=== PATIENT | female | born 1960 | race Caucasian/White ===

== ENCOUNTER 2024-09-19 08:52 | Outpatient (CLI) | payer MEDICARE, MEDICAID, SELFPAY ==
[2024-09-19 10:43] LABS: Basophils Percent Auto 0.6 % (0.2-1.2); Eosinophils Absolute Auto 0.3 K/mm3 (0-0.3); Eosinophils Percent Auto 6.9 % (0-4.4); Hematocrit 39.6 % (37.0-47.0); Hemoglobin 12.8 g/dL (12.0-15.0); Immature Granulocyte Absolute 0.01 K/mm3 (0.00-0.031); Immature Granulocyte Percent A 0.2 % (0-0.5); Lymphocytes Absolute Auto 1.34 K/mm3 (0.9-3.2); Lymphocytes Percent Auto 28.1 % (18.3-44.2); Mean Corpuscular HGB Conc 32.3 g/dl (32-36); Mean Corpuscular Hemoglobin 32.4 pg (26-34); Mean Corpuscular Volume 100.3 fl (80-100); Monocytes Absolute Auto 0.5 K/mm3 (0.1-0.6); Monocytes Percent Auto 10.7 % (2.6-8.5); Neutrophils Absolute Auto 2.6 K/mm3 (1.3-6.7); Neutrophils Percent Auto 53.5 % (45.5-73.1); Platelet Count Result 215 k/mm3 (150-375); Red Blood Count 3.95 M/mm3 (4.2-5.4); Red Cell Distribution Width 13.4 % (11.5-14.5); White Blood Count 4.8 K/mm3 (4.5-10.0)
[2024-09-19 10:54] LABS: Add Urine Microscopic? YES; Appearance Urine Clear (Clear); Bacteria Urine None Seen /hpf; Bilirubin Urine Negative (Negative); Blood Urine Negative (Negative); Color Urine Yellow (Yellow); Glucose Urine UA Negative (Negative); Ketones Urine Negative (Negative); Leukocyte Esterase Ur 2+ LEU/UL (Negative); Nitrate Urine Negative (Negative); Non Pathogenic Casts 0-2; Protein Urine Negative (Negative); Prothrombin Time 13.5 Seconds (11.1-14.7); RBC Urine 0-2 /hpf (0-2); Specific Grav Ur 1.023 (1.001-1.035); Squamous Epithelial Cell Urine Few /hpf (Few); Urobilinogen Urine 0.2 mg/dL (<2.0); pH Urine 6.5 (5.0-9.0)
[2024-09-19 10:55] LABS: Albumin Level 4.5 g/dL (3.5-5.1); Anion Gap 8 mmol/L (4-12); Blood Urea Nitrogen 17 mg/dL (7-17); Calcium 9.2 mg/dL (8.4-10.2); Carbon Dioxide 29 mmol/L (22-30); Chloride 101 mmol/L (98-107); Estimated Glomerular Filt Rate > 60; Glucose 93 mg/dL (65-110); Partial Thromboplastin Time 24.1 Seconds (22.3-36.8); Potassium 4.9 mmol/L (3.4-5.0); Sodium 138 mmol/L (137-145)
[2024-09-19 11:06] LABS: Urine Cotinine NEGATIVE
[2024-09-19 11:20] LABS: Hemoglobin A1C 5.2 % (<5.7)
[2024-09-19 11:58] LABS: MRSA (PCR) NOT DETECTED (NOT DETECTE)
== END 2024-09-19 08:53 | disposition home or self-care (01) ==
PROVIDERS: PCP Internal Medicine Gastroenterology; Visit Provider Orthopaedic Surgery
DX: M17.12 Unilateral primary osteoarthritis, left knee (principal); Z01.812 Encounter for preprocedural laboratory examination
CPT/HCPCS: 80048; 80307; 81001; 82040; 83036; 85025; 85610; 85730; 86850; 86900; 86901; 87086; 87641

== ENCOUNTER 2024-11-11 00:47 | Day surgery (SDC) | payer MEDICARE, MEDICAID, SELFPAY ==
--- NOTE | 2024-09-14 13:17 | PC.NURSE ---
Patient says is unable to get here for interview as the transportation arrangements she made has fallen through. Discussed with patient need to make total joint class and transferred to scheduling to reschedule this appt.
--- NOTE | 2024-09-19 08:56 | PC.NURSE ---
Report to the Outpatient Waiting Room, entrance under the green pavilion located off [facility], at time __10 am on date _09/27/24 . Planned Procedure Time: 1200 noon .? Time changes happen often and if your time is changed the preop area will call you the afternoon before. - You and your visitor will be asked to self-screen and do not enter if you have any COVID symptoms. Please call surgeon if you need to reschedule. - A mask is optional within the hospital at this time. Patients may have clear liquids (water, carbonated beverages, clear teas, apple juice) until 3 hours prior to surgery( 9 am) with a maximum of 20 ounces. - No food from midnight until time of surgery and no smoking. This includes no chewing gum, candy or mints. Take only the following medications with a SIP of water on the morning of surgery: _LEVOTHYROXINE_,HYDROCODONE IF NEEDED FOR PAIN,VALACYCLOVIR DO NOT STOP ANY OF YOUR OTHER PRESCRIPTION MEDICATIONS PRIOR TO SURGERY EXCEPT THE FOLLOWING Medications to discontinue per physician ___CELECOXIB,IBUPROFEN, PER DR MCNEILL HOLD ALL VITAMNS AND SUPPLEMENTS 3 DAYS PRE OP .LAST DOSE09/23/24 TOTAL JOINT CLASS 09/21/24 AT 10 AM- PATIENT AWARE Please no make-up, nail moroccan, hairspray, perfume, deodorant, or body powder the day of surgery.? No jewelry (including any body piercings) or valuables the day of surgery, leave them at home.? Please take a shower or bath the night before, or the morning of, surgery with an antibacterial soap.? Wear comfortable, loose fitting clothing.? Children are encouraged to wear pajamas. - Jewelry must be removed prior to entering the operating room.? Rings and piercings that are not removed may be cut off. - The hospital will not accept responsibility for valuables.? - Please leave all valuables, including medications, at home the day of surgery. If you are going home after surgery, a licensed compressed air pile driver operator must drive you home.? - NO public transportation without another adult if you receive anesthesia. - We recommend that an adult stay with you for 24 hours following discharge. - We also recommend that you do not drive, make important decision, drink alcoholic beverages, or take any drugs that were not prescribed by your health care provider for at least 24 hours after your discharge time. Follow any additional instructions given to you from your surgeon. verbal and written instructions given to __PATIENT and asked if any additional questions and then verbalized understanding. Patient advised to call surgeon office or pre surgery nurse liaison [phone] if any additional questions.
[2024-09-19 09:05] VITALS: BMI 32.0
[2024-09-19 09:51] VITALS: BP 137/89; PULSE 83; RESP 18; TEMP 36.6; O2SAT 99
--- NOTE | 2024-10-24 14:14 | PC.NURSE ---
Report to the Outpatient Waiting Room, entrance under the green pavilion located off [facility], at time _6 AM on date _11/11/24 . Planned Procedure Time: _7:30 AM .? Time changes happen often and if your time is changed the preop area will call you the afternoon before. - You and your visitor will be asked to self-screen and do not enter if you have any COVID symptoms. Please call surgeon if you need to reschedule. - A mask is optional within the hospital at this time. Patients may have clear liquids (water, carbonated beverages, clear teas, apple juice) until 3 hours prior to surgery ( 4:30 AM) with a maximum of 20 ounces. - No food from midnight until time of surgery and no smoking, or chewing tobacco (or any form of nicotine). No chewing gum, candy or mints. -. Take only the following medications with a SIP of water on the morning of surgery: ___LEVOTHYROXINE,HYDROCODONE IF NEEDED FOR PAIN,VALACYCLOVIR DO NOT STOP ANY OF YOUR OTHER PRESCRIPTION MEDICATIONS PRIOR TO SURGERY EXCEPT THE FOLLOWING Hold all vitamins and supplements for 3 days per anesthesiologist.LAST DOSE 11/07/24 Medications to discontinue per physician __IBUPROFEN PER DR MCNEILL Please no make-up, nail vietnamese, hairspray, perfume, deodorant, or body powder the day of surgery.? No jewelry (including any body piercings) or valuables the day of surgery, leave them at home.? Please take a shower or bath the night before, or the morning of, surgery with an antibacterial soap.? Wear comfortable, loose fitting clothing.? Children are encouraged to wear pajamas. - Jewelry must be removed prior to entering the operating room.? Rings and piercings that are not removed may be cut off. - The hospital will not accept responsibility for valuables.? - Please leave all valuables, including medications, at home the day of surgery. If you are going home after surgery, a licensed motorcycle delivery driver must drive you home.? - NO public transportation without another adult if you receive anesthesia. - We recommend that an adult stay with you for 24 hours following discharge. - We also recommend that you do not drive, make important decision, drink alcoholic beverages, or take any drugs that were not prescribed by your health care provider for at least 24 hours after your discharge time. Follow any additional instructions given to you from your surgeon. Telephone instructions given to __PATIENT and asked if any additional questions and then verbalized understanding. Patient advised to call surgeon office or pre surgery nurse liaison [phone] if any additional questions.
[2024-11-11] VITALS (17 sets, daily range): BP systolic 112–172; BP diastolic 59–93; PULSE 63–90; RESP 12–19; TEMP 36.1–37.3; O2SAT 95–100; BMI 33.2
--- NOTE | ~2024-11-11 | XR_ITS ---
EXAMINATION: [id number] DATE: 11/11/2024 10:50 INDICATION: Left knee arthroplasty. Postop. TECHNIQUE: 2 views of the left knee were obtained. COMPARISON: Left knee radiographs 06/27/2024 FINDINGS: There is a total left knee arthroplasty without patellar resurfacing in near-anatomic align ment. No fracture. There is severe osteoarthritis of the patellofemoral compartment. There has been r esection of osteophytes of the patella. There is gas in the knee joint and soft tissues, consistent w ith recent surgery. Anterior skin margarita are noted. IMPRESSION: 1. Total left knee arthroplasty in near-anatomic alignment. Reviewed, dictated and finalized at location L.
--- OUTSIDE RECORDS SUMMARY | 2024-11-11 00:50 | XMS_ITS | Data Portability ---
Author Organization [place] [facility], Main Office Address [address] [place] [address] Care Team Providers Care Freelance Web Designer Name Role Phone DIANA GORDILLO Primary Care Provider DIANA GORDILLO Referring Provider Assessment Encounter Date Assessment Date Assessment LastModified by Organization Details LastModified Time 08/01/2024 08/01/2024 64-year-old female presents for evaluation of her left hand. She had injury about a week ago when she was catching a football, fell on the ground, and hit her left hand. She had pain and swelling over her pinky. She denies any previous injury. She is right-hand dominant. She is on disability for other medical issues. She currently rates her pain 6/10. She has been taking hydrocodone over this, and was placed in a splint, has not had any other treatments. Review of systems per patient questionnaire Physical exam: She has ecchymosis and swelling over the pinky and ulnar hand. She has tenderness over the proximal phalanx. She is able to straighten her fingers fully, has difficulty with making a full fist. Normal cascade alignment. Sensation intact to light touch, 2+ radial pulse. X-rays reviewed, demonstrating a minimally displaced fracture involving the proximal phalanx of the pinky, extra-articular at the base we will treat this fracture conservatively with veronica taping. We also discussed placing her in a splint but she wanted to proceed with veronica taping since she lives by herself and needs to be able to move her hand. We will see her back in 3 weeks with repeat x-rays. She is in agreement plan. She also smokes occasionally. We discussed nicotine cessation effects of nicotine on healing, 3 minutes were spent. Not available 08/01/2024 12:27:18 08/15/2024 08/15/2024 64-year-old female presents for re-evaluation of her left hand proximal phalanx pinky fracture. She states she has been veronica taping it, but a week or so ago she forgot to tape it and was making the bed and jammed the finger. It was very painful and has been painful since. She rates her pain 6/10. Physical exam: No ecchymosis. Trace edema around pinky. She has tenderness over the proximal phalanx. She is able to straighten her fingers fully, has difficulty with making a full fist. Normal cascade alignment. Sensation intact to light touch, 2+ radial pulse. X-rays reviewed, demonstrating a minimally displaced fracture involving the proximal phalanx of the pinky, extra-articular at the base It does not look like she displaced the finger, but it is possible she broke new bone formation. We will continue to treat this fracture conservatively with veronica taping. We discussed that bones typically take 4-6 weeks to heal and that time frame may start over after her new injury. We will see her back in 3 weeks with repeat x-rays. She is in agreement plan. [email or web address] Not available 08/15/2024 12:52:02 09/12/2024 09/12/2024 64-year-old female presents for follow-up of her left pinky. She had a 2nd proximal phalanx fracture right before we saw her in July. She has been veronica taping. She reports feeling better, having minimal pain rated as 2/10. She is able to move her fingers more. She has no tenderness around the finger. She is able to make a closed fist and straighten nearly all the way. She has sensation intact to light touch throughout. X-rays were reviewed, demonstrating a healing fracture with callus formation That this point, her finger is healing. She may progress with activities as tolerated. She wants to continue veronica taping as it is icy out and that is fine. Follow up as needed. Not available 09/12/2024 10:53:55 Plan of Treatment Reminders Order Date Submit Date Provider Last Modified By Organization Details Last Modified Time Details Appointments None record ed. Lab None record ed. Referral None record ed. Procedures None record ed. Surgeries None record ed. Imaging XR, hand, 3 or more view 025 09/12/19 25 [email or web address] [facility], [address] [facility], [place], [address], 5 12:29:59 XR, hand, 3 or more view 024 08/15/20 24 [email or web address] [facility] [place], [address] [facility], [place], [address], 4 12:47:54 Medication Orders None record ed. Patient TargetsNo targets recorded. Patient InstructionsNo instructions recorded. Reason for Referral None Reported. Results Created Date Observation Date Name Description Value Unit Range Abnormal Flag Note LastModifiedBy Organization Detail LastModifiedTime 04/18/2004/17/2022 MRI, lumba r spine , w/o contr ast [facility] [address] [place], [place] [id number] Patien t Name: GIANNI JESUS Access ion #: [id number] Sex: F : 1959 4 Locati on: RAD Attend ing Physic ortega: ANAND LUNA Orderi elizabeth Physic ortega: ANAND LUNA Exam Date: 022 12:51 PM Exam Name: MRI L SPINE WO Admitt ing Diagno sis(es ): RADIOL OGY REPORT - FINAL EXAM: MRI L SPINE WO HISTOR Y: spinal stenos is lumbar region /hx 2 previo us back surger ies 62-yea r-old female with severe back pain, histor y of spinal stenos is, lumbar spine surger ies in 2010 and 2012. COMPAR KEREN: MRI of the lumbar spine dated 2020. TECHNI QUE: Multip lanar multis equenc e noncon trast MR images of the lumbar spine were perfor med. FINDIN GS: There is a stable superi or endpla te burst fractu re of L1, simila r to that seen on the MRI dated 2020. No new fractu res are identi fied in the lumbar spine. The conus termin ates at L1. There is lumbar levosc oliosi s. Page 1 of 4 [facility] Pati t Name: GIANNI JESUS Access ion #: [id number] Sex: F : 1959 4 Exam Date: 022 12:51 PM Exam Name: MRI L SPINE WO Admitt ing Diagno sis(es ): There are postop erativ e change s extension course counselor ior spinal fusion L4-L5 with pedicl e screws and rods; discec diandra and interv ertebr al disc prosth esis L3-L5. There is atroph y of the bilate ral multif idus muscle s. T12-L1 : The AP dimens ion of the spinal canal measur es 5.6 mm second yanira to retrop ulsion of fragme nts from the L1 superi or endpla te burst fractu re, and this is stable since the previo us MRI examin ation. There is mass effect on the distal spinal cord as a result . No signif icant neural forami nal stenos is bilate rally. L1-L2: There is a circum ferent ial broad disc bulge. There is bilate ral facet and ligame ntum flavum hypert rophy. The AP dimens ion of the spinal canal measur es 6.5 mm. There is mild right and modera te left neural forami nal stenos is. L2-L3: There is disc desicc ation and near comple te loss of disc height . There are Modic type 1 and 2 change s in the adjace nt endpla garth. There is extens goldie irregu larity of the adjace nt endpla garth. There is a circum ferent ial broad disc bulge with endpla te hypert rophy, most promin ent in the right forami nal region . There is bilate ral facet and ligame ntum flavum hypert rophy. The AP dimens ion of the spinal canal measur es 5 mm. There is modera te to severe right and modera te left neural forami nal stenos is. There is partia l efface ment of the right latera l recess . L3-L4: There are postop erativ e change s of discec diandra and interv ertebr al disc prosth esis. No eviden ce of recurr ent disc hernia tion. The AP dimens ion of the spinal canal measur es 5.5 mm. There is bilate ral facet hypert rophy. There is mild bilate ral neural forami nal stenos is. Page 2 of 4 [facility] aggie Name: GIANNI JESUS Access ion #: [id number] Sex: F : 1959 4 Exam Date: 022 12:51 PM Exam Name: MRI L SPINE WO Admitt ing Diagno sis(es ): L4-L5: There are postop erativ e change s of diskec diandra, interv ertebr al disc prosth esis, right lamino diandra, partia l bilate ral facete ctomy, and extension course counselor ior spinal fusion with pedicl e screws and rods. There is slight ronit listhe sis L4 on L5. The AP dimens ion of the spinal canal measur es 8.5 mm. There is partia l efface ment of the left latera l recess second yanira to left facet hypert rophy. There is mild right and no signif icant left neural forami nal stenos is. L5-S1: No signif icant discop athy or spinal canal stenos is. There is bilate ral facet hypert rophy with partia l efface ment of the latera l recess es. There is mild bilate ral neural forami nal stenos is. IMPRES ANTHONY: 1. Stable chroni c superi or endpla te burst fractu re of L1. No new fractu res are identi fied throug hout the lumbar spine. 2. Postop erativ e change s L3-L5 as detail ed above. 3. Degene rative disc diseas e and facet arthro nuvia with signif icant neural forami nal stenos is at L1-L2 on the left and L2-L3 bilate rally. These findin gs may corres pond to lower extrem ity radicu lar sympto ms in the left L1 and bilate ral L2 nerve root distri bution s. Additi onally , there is partia l efface ment of the latera l recess es at multip le levels which may contri bute to imping ement of multip le lumbar nerve roots. 4. Modera te spinal canal stenos is at every disc level T12-L4 . As a result , there is mass effect on the distal spinal cord at the T12-L1 level, stable since MRI examin ation from 2020. Create d and electr onical ly signed by: Vincenzo montalvo MD Page 3 of 4 [facility] Name: GIANNI JESUS Access ion #: [id number] Sex: F : 1959 4 Exam Date: 12:51 PM Exam Name: MRI L SPINE WO Admitt ing Diagno sis(es ): Signed Date: 10:23 AM (CT) Dictat ed by: Vincenzo montalvo MD DD: 10:23 AM (CT) DT: 10:23 AM (CT) Page 4 of 4 [id number] [facility] (Imaging) [address] [place], [address], 10/30/2022 00:59:50 07/27/20 24 07/26/2024 XR, hand, 3 or more view No observ ation record ed. [email or web address] Not Available 07/02 10:31:43 08/15/20 24 XR, hand, 3 or more view No observ ation record ed. [email or web address] [facility] [address] [place], [address], 08/15/2024 12:47:52 09/12/19 25 XR, hand, 3 or more view No observ ation record ed. [email or web address] [facility] [place] [id number] [facility], [place], [address], 09/12/2024 10:30:51 Result Notes None recorded. Problems Name Problem SNOMED Code Status Onset Date Resolution Date Notes Provider Name and Address Organization Details Recorded Time Pain in right sacroiliac joint 9918621689607 9107 Active 2021 Not Available [facility] 3 00:58:58 Spinal stenosis of lumbar region 39757210 Active 2021 Not Available [facility] 3 00:58:58 Low back pain 071968572 Active 2021 Not Available [facility] 3 00:58:58 Pain of left hand 4836095386644 03 Active 2023 Katie Gao, ATC L null, [facility] 4 11:17:05 Notes:Some problems listed i n Document: #[id number] could not be added to this patient's chart. Please review this document and add these problems to the patient's chart manually as needed. Problem Notes None recorded. Procedures Surgical History Date Name Laterality Status Provider Name and Address Organization Details Recorded Time total replacement of right knee joint completed Estephania Butler [facility] 08/01/2024 11:48:21 Back Surgery completed Estephania Carrie [facility] 08/01/2024 11:48:35 Imaging Results Imaging Date Name Status LastModified by Damien matute Details LastModified Time 04/17/2022 MRI, lumbar spine, w/o contrast completed [id number] [facility] (Imaging) [address] [place], [address], 10/30/2022 00:59:50 07/26/2024 XR, hand, 3 or more view completed [email or web address] Information not available 07/27/2024 10:31:43 08/15/2024 XR, hand, 3 or more view completed [email or web address] [facility] [address], [address], 08/15/2024 12:47:52 09/12/2024 XR, hand, 3 or more view completed [email or web address] [facility] [address], [address], 09/12/2024 10:30:51 Procedure Notes None recorded. Medical Equipment None Reported. Allergies Allergen ID Allergen Name Allergen Category Reaction Reaction Severity Criticality Documentation Date Start Date Code Code System Note Provider Name and Address Organization Details Recorded Time 09383 tizanidin e medicatio n Not available Not available Not available 10/30/2022 67070 RxNorm Not Available [facility] 3 00:59:43 Medications Name Sig Start Date Stop Date Status Note LastModified by Organization Details LastModified Time multivitami n tablet TAKE 1 TABLET BY MOUTH EVERY DAY 07/27 completed Not Available Not Available Not Available celecoxib 200 mg capsule TAKE 1 CAPSULE BY MOUTH EVERY DAY active Not Available Not Available No t Available prednisone 10 mg tablet 07/27 completed Not Available Not Available Not Available atorvastati n 10 mg tablet TAKE 1 TABLET BY MOUTH EVERY DAY 07/27 completed Not Available Not Available Not Available valacyclovi r 1 gram tablet TAKE 1 TABLET BY MOUTH EVERY DAY DIRECTED 07/27 completed Not Available Not Available Not Available hydrocodone 5 mg-acetamin ophen 325 mg tablet TAKE 1 TABLET BY MOUTH THREE TIMES DAILY NEEDED active Not Available Not Available No t Available acetaminoph en 300 mg-codeine 30 mg tablet TAKE 1 TABLET BY MOUTH THREE TIMES DAILY NEEDED 08/01 completed Not Available Not Available Not Available levothyroxi ne 75 mcg tablet TAKE 1 TABLET BY MOUTH EVERY DAY 07/27 completed Not Available Not Available Not Available prednisone 10 mg tablets in a dose pack Take 1 tab by mouth, 3 times a day for 3 daysTake 1 tab by mouth 2 times a day for 2 daysTake 1 tab by mouth once a day for 1 day 07/27 completed Not Available Not Available Not Available Kenalog 10 mg/mL suspension for injection In office injection administe red by the provider 07/27 completed [facility]: 0003- 0494- 20 Not Available Not Available Not Available nystatin 100,000 unit/gram topical cream APPLY TOPICALLY TO THE AFFECTED AREA TWICE DAILY 08/01 completed Not Available Not Available Not Available morphine ER 15 mg tablet,exte nded release TAKE 1 TABLET BY MOUTH EVERY 8 HOURS 02/18 completed Not Available Not Available Not Available ergocalcife rol (vitamin D2) 1,250 mcg (50,000 unit) capsule TAKE 1 CAPSULE BY MOUTH EVERY WEEK active Not Available Not Available No t Available levothyroxi ne active Not Available Not Available Not Available Vitamin D3 active Not Available Not Av ailable Not Available lidocaine (PF) 5 mg/mL (0.5 %) injection solution Take 20 mg by injection route. 07/27 completed Not Available Not Available Not Available Oysco 500/D 500 mg-5 mcg (200 unit) tablet TAKE 1 TABLET BY MOUTH TWICE DAILY 07/27 completed Not Available Not Available Not Available Vitals Date Recorded Body height Provider Name an d Address Organization Details Last Updated DateTime 04/15/2022 160.02 cm Not Available [facility] 3 00:58:41 Date Recorded Body height Provider Name an d Address Organization Details Last Updated DateTime 07/01/2022 160.02 cm Not Available [facility] 3 00:58:41 Date Recorded Body height Body mass index (BMI) Body weight Provider Name and Address Organization Details Last Updated DateTime 08/01/2024 160.02 cm 28.3 kg/m2 55665.78 g Estephania Butler [place] [facility] 08/01/2024 11:46:11 Date Recorded Body height Body mass index (BMI) Body weight Provider Name and Address Organization Details Last Updated DateTime 08/15/2024 160.02 cm 28.3 kg/m2 00873.78 g Katie Gao, ATC L [employer] [facility] 08/15/2024 11:16:23 Date Recorded Body height Body mass index (BMI) Body weight Pain severity - 0-10 verbal numeric rating [Score] - Reported Provider Name and Address Organization Details Last Updated DateTime 09/12/2024 160.02 cm 28.3 kg/m2 09532.78 g Hanny Brooks Dayana [employer] [facility] 09/12/2024 10:30:35 Social History Question Answer Notes LastModified by Organizat ion Details LastModified Time Tobacco Smoking Status Former Smoker quit 08/2021 Not Available [facility] 10/30/2022 00:57:57 What Is Your Level Of Alcohol Consumption? Occasional [email or web address] Information not available 08/01/2024 What Was The Date Of Your Most Recent Tobacco Screening? 08/01/2024 [email or web address] Information not available 08/01/2024 What Is Your Current Pack Years? [email or web address] [email or web address] [id number] Information not available 10/30/2022 Sex: Unknown Functional Status None recorded. Mental Status None recorded. Family History Relationship Description Onset Age of this Age Resolved Age Notes LastModified by Organization Details LastModified Time Father Family history of stroke [id number] Not available 10/30/2022 00:58:20 Mother Family history of malignant neoplasm [id number] Not available 10/30/2022 00:58:20 Mother Hypertensive disorder [id number] Not available 10/30/2022 00:58:20 Mother Diabetes mellitus [id number] Not available 10/30/2022 00:58:20 Mother Kidney disease [id number] Not available 10/30/2022 00:58:20 Medical History Condition Response BLINDNESS N KIDNEY STONES N CARPAL TUNNEL SYNDROME N MRSA N LUNG DISEASE/DISORDER N HISTORY OF DRUG ABUSE N RADIATION / CHEMOTHERAPY N COPD N SPORTS INJURY N ANKLE PAIN N BLOOD DISEASES N SCHIZOPHRENIA N SHINGLES N SHOULDER PAIN N BOWEL PROBLEMS N DEPRESSION (INCLUDING POST ) N STROKE/TIA N ULCERS N KNEE PAIN N BENIGN PROSTATIC HYPERPLASIA N OBESITY N GERD/NAUSEA N ANEURYSM N URINARY/BLADDER/KIDNEY PROBLEMS N CORONARY ARTERY DISEASE (CAD) N ADDICTION CONCERNS N USE OF BLOOD THINNERS N SKIN PROBLEMS N EMPHYSEMA N MUSCLE,JOINT OR BONE PROBLEMS N DVT N STOMACH ULCERS N BLOOD CLOTS N USE OF NSAIDS N CONCUSSION OR SPINAL TRAUMA N NEUROPATHY N AIDS/HIV N FRACTURES N HYPERTENSION N ELBOW PAIN N TOURETTE'S N Metal allergy N ANXIETY DISORDER N BLOOD TRANSFUSION N ANEMIA/BLOOD DISORDER N BIPOLAR DISORDER N BRONCHITIS N OSTEOARTHRITIS N TUBERCULOSIS N FOOT PROBLEM N HEART VALVE DISORDERS N ALLERGIES/HAYFEVER N SOFT TISSUE INJURY N INFECTIOUS DISEASE N HEART ARRHYTHMIA N INSOMNIA N HIGH CHOLESTEROL / HYPERLIPIDEMIA N RHEUMATOID ARTHRITIS N EDEMA N CHRONIC PAIN SYNDROME N CAROTID BLOCKAGE N BACK / NECK PROBLEMS N HAVE YOU BEEN HOSPITALIZED OR SEEN IN [facility] IN THE PAST YEAR ? N BURSITIS N HERNIATED DISC N DIALYSIS N FIBROMYALGIA N OSTEOPOROSIS Y ARTHRITIS Y NO SIGNIFICANT PAST MEDICAL HISTORY N PERIPHERAL NEUROPATHY N DIABETES, TYPE N HEARTBURN / REFLUX N HEPATITIS / LIVER DISEASE Y GOUT N ALZHEIMER'S DISEASE N SLEEP DISORDER N HERPES N HEADACHES/MIGRAINES N SEIZURES/EPILEPSY N VASCULAR DISEASE N Blood Disorder N HIP PAIN N DIZZINESS N HEAD TRAUMA OR INJURY N HEART DISEASE/HEART PROBLEMS N MULTIPLE SCLEROSIS N CANCER: SPECIFY N CARDIAC ARRHYTHMIA N ANESTHESIA COMPLICATIONS N ATRIAL FIBRILLATION N AUTOIMMUNE DISEASE N Gynecological HistoryNo gynecological history recorded. Obstetrics History GPAL:G 0 P 0 0 0 0 Past Encounters Encounter ID Performer Location Encounter Start Date Encounter Closed Date Diagnosis/Indication Diagnosis SNOMED-CT Code Diagnosis ICD10 Code Diagnosis Note [id number] [facility] [address] [address] 02/18/2022 00:00:00 02/18/2022 09:38:44 [id number] [facility] [address] [address] 03/18/2022 00:00:00 03/18/2022 09:31:24 [id number] [facility] [address] [address] 04/15/2022 00:00:00 04/15/2022 10:10:07 [id number] [facility] [address] [address] 07/01/2022 00:00:00 07/01/2022 11:29:28 [id number] Vincenzo Burrows MD [facility] [address] [address] 08/01/2024 11:32:02 08/01/2024 12:15:30 [id number] Jess Gudino NP [facility] [address] [address] 08/15/2024 11:11:39 08/15/2024 11:35:40 Pain of left hand 9086533330 94598 M79.310 [id number] Vincenzo Burrows MD [facility] [address] [address] 09/12/2024 10:20:09 09/12/2024 11:22:41 Pain of left hand 5408863716 89417 M79.642 Health Concerns Section Related Observation LastModified by Organization Detai ls LastModified Time None Recorded Concern Status LastModified by Organization Details LastModified Time None Recorded Advance Directives Directive None Recorded Payers Encounter Date Sequence Insurance Name Policy Number Policy [place] Covered Member ID [place] Member ID Guarantor Name 08/01/2024 1 [place] Gianni Chow [id number] Gianni Portell 08/01/2024 2 [place] [facility] Gianni Chow [id number] Gianni Portell 08/15/2024 1 [place] Gianni Kernsell [id number] Gianni Portell 08/15/2024 2 [place] WHEN MED[place]ARE OR MEDICARE REPLACEMENT PRIMARY) Gianni Kernsell [id number] Gianni Portell 09/12/2024 1 [place] Gian[place] Kernsell [id number] Gianni Portell 09/12/2024 2 [place]PLACEMENT [place]) Gianni Kernsell [id number] Gianni Portell Notes Date Note Type Note Provider Name and Address Organization Details Recorded Time 04/15/2022 text/html L-spineReported bypatient.Locati on:posterior; deep Quality:aching; throbbing; dull; frequent Severity:moderat e Duration:continu ous since onset Timing:chronic Context:lifting; twisting; overuse Alleviating Factors:lying down; position change; ice; rest; elevation Aggravating Factors:walking; bending/squattin g; exercise Associated Symptoms:no numbness; no tingling; no swelling; no redness; no ecchymosis; no catching/locking ; no popping/clicking ; no buckling; no grinding; no instability; no radiation down leg; no drainage; no fever; no chills; no weight loss; no change in bowel/bladder habits;weakness; warmth Not Available [facility] [employer] 04/15/2022 10:10:07 07/01/2022 text/html L-spineReported bypatient.Locati on:posterior; deep Quality:aching; throbbing; dull; frequent Severity:moderat e Duration:continu ous since onset Timing:chronic Context:lifting; twisting; overuse Alleviating Factors:lying down; position change; ice; rest; elevation Aggravating Factors:walking; bending/squattin g; exercise Associated Symptoms:no numbness; no tingling; no swelling; no redness; no ecchymosis; no catching/locking ; no popping/clicking ; no buckling; no grinding; no instability; no radiation down leg; no drainage; no fever; no chills; no weight loss; no change in bowel/bladder habits;weakness; warmth Not Available [facility] 07/01/2022 11:29:28 OBGyn Episode No OBEpisode recorded.
[2024-11-11] MEDS: ACETAMINOPHEN 500 MG TABLET 1000 MG PO (06:45)
[2024-11-11] MEDS: TRANEXAMIC ACID 1,000MG/ISO100 1,000 MG/100 ML BAG 200 MG IVPB (07:02)
--- NOTE | 2024-11-11 07:11 | P.PNAN_ITS ---
Anes - Initial Pre Proc Eval Procedure: Operation Date: 11/11/24 07:30 Proposed Procedures p Left Total Knee Arthroplasty - Sawyer Melchor MD Date/Time: 11/11/24 07:11 Surgeon: Sawyer Melchor MD Pre Op Diagnosis: left knee OA Patient Data Age: 64 Gender: F Height: 1.55 m Weight: 79.7 kg Last Vital Signs Temp 36.4 C 11/11/24 06:00 Pulse 68 11/11/24 06:00 Resp 14 11/11/24 06:00 BP 153/88 H 11/11/24 06:00 Pulse Ox 100 11/11/24 06:00 O2 Del Method Room Air 11/11/24 06:00 Allergies Allergy/AdvReac Type Severity Reaction Status Date / Time buspirone Allergy Hives Verified 11/11/24 06:20 tizanidine Allergy ANGIOEDEMA Verified 11/11/24 06:20 Home Medications ?Medication ?Instructions ?Recorded ?Confirmed ?Type levothyroxine 75 mcg capsule 75 mcg PO DAILY 06/27/24 11/11/24 History acetaminophen 650 mg 650 mg PO Q12H PRN pain 09/19/24 11/11/24 History tablet,extended release (8 Hour Pain Reliever) cyanocobalamin (vitamin B-12) 1,000 mcg PO DAILY 09/19/24 11/11/24 History 1,000 mcg capsule ergocalciferol (vitamin D2) 1,250 50,000 unit PO WEEKLY 09/19/24 11/11/24 History mcg (50,000 unit) capsule hydrocodone 5 mg-acetaminophen 325 1 tablet PO TID 09/19/24 11/11/24 History mg tablet ibuprofen 200 mg-diphenhydramine 1 cap PO HS PRN pain 09/19/24 09/19/24 History HCl 25 mg capsule (Advil PM Liqui-Gels) valacyclovir 1 gram tablet 1,000 mg PO DAILY 09/19/24 11/11/24 History vitamin E (dl, acetate) 180 mg 180 mg PO DAILY 09/19/24 11/11/24 History (400 unit) capsule chlorhexidine gluconate 4 % 1 applic topical ONCE #237 mL 09/20/24 11/11/24 Rx topical liquid (Hibiclens) Patient hx anesthesia problems: none Family hx anesthesia problems: none Results Review: All pre-operative results and documents have been reviewed as part of the pre- operative evaluation. [facility] Past Medical History Medical History Osteoporosis Degenerative joint disease of knee HTN (hypertension) Other fatigue HLD (hyperlipidemia) Age related osteoporosis Left knee pain Surgical History Surgical History Hx of hand surgery 1 plate and pin L hand, 2 plates and pin R hand History of carpal tunnel release of both wrists History of right knee surgery History of back surgery History of section 1988 Social History Social History Smoking packs per day: 1 Smoking cigarettes per day: 20.0 Years smoked: 40 Smoking pack-years: 40.00 Smoking status: Former smoker Tobacco type: cigarettes Second hand tobacco smoke exposure: Yes Smoking end date: 08/31/23 Additional smoking assessment comments: DENIES ANY FORM OF TOBACCO USE Alcohol intake: current Drinks per week: 1 Alcohol use details: BEER Substance use type: marijuana and prescription drug Living arrangements: alone Spiritual care concerns: No Anes - Eval Final PreProcedure Day of Procedure 11/11/24 07:11 Patient weight: obese Heart: regular rate and rhythm Lungs: decreased breath sounds Airway: Mallampati scale class II Neurological: alert and oriented Last oral intake: >/= 8 hours ASA classification: III Emergent: no Anesthetic plan: proceed Anesthesia type and monitoring: general LMA and standard monitoring Results Review: All pre-operative results and documents have been reviewed as part of the pre- operative evaluation. Informed Consent: The patient's anesthetic plan and its attendant risks and benefits were discussed with the patient/family/POA. Questions were solicited and answers provided to the satisfaction of the patient/family/POA.
--- NOTE | 2024-11-11 07:21 | WPDHPUPDATE1 ---
History and Physical Update Update Date/Time: 11/11/24 07:21 History and Physical has been reviewed, including an updated exam of the patient. There are NO changes in the patient's condition. Risks, benefits, and alternatives have been discussed and questions answered. Patient agrees to proceed with procedure.
[2024-11-11] MEDS: ceFAZolin 2 GM/D5W 50 ML 2 GM/50 ML BAG IVPB ×3 (07:33→23:54)
[2024-11-11] MEDS: SODIUM CHLORIDE 0.9% IV 37.7 ML, MORPHINE SULFATE INJ (*CRX) 2 MG, ROPivacaine HCL 1% 2... INFILTRATE (07:52)
[2024-11-11] MEDS: TRANEXAMIC ACID 1,000 MG/10 ML AMPUL 1000 MG IV PUSH (09:21)
[2024-11-11] MEDS: LACTATED RINGERS 1,000 ML 30 ML IV CONT ×2 (10:40)
--- NOTE | 2024-11-11 10:45 | P.OP_ITS ---
Procedure Note - Detailed Date of Procedure 11/11/24 Pre-op Diagnosis left knee OA Post-op Diagnosis Same Procedure Performed L TKA Surgeon Sawyer Melchor MD Anesthesia General Description of Procedure THE LEFT KNEE WAS PREPPED AND DRAPED IN THE STERILE FASHION. A MIDLINE SKIN INCISION WAS MADE. A MEDIAL PARAPATELLAR ARTHROTOMY WAS MADE. THE PATELLA WAS EVERTED. THERE WAS TRICOMPARTMENT DJD. AN INTRAMEDULLARY GREGOR WAS PLACED IN THE FEMUR. A DISTAL FEMORAL CUT WAS MADE IN 5 DEGREES OF VALGUS REMOVING A PPROXIMATELY 10 MM OF BONE FROM THE DISTAL FEMUR. THE FEMUR WAS SIZED TO 60. A 60 FEMORAL CUTTING BLOCK WAS PLACED IN 3 DEGREES OF EXTERNAL ROTATION AND IN ALIGNMENT WITH ERIC'S LINE AND THE TRANSEPICONDYLAR AXIS. ANTERIOR POSTERIOR AND CHAMFER CUTS WERE MADE. THE CUTS WERE EXCELLENT. NEXT AN INTRAMEDULLARY CUTTING GUIDE WAS PLACED IN THE TIBIA. A TRANS TIBIAL CUT WAS MADE ALONG THE LONG AXIS OF THE TIBIA. APPROXIMATELY 10 MM OF BONE WAS REMOVED FROM THE HIGH SIDE OF THE TIBIA. THE TIBIA WAS THEN PLANED TO A SMOOTH SURFACE. POSTERIOR FEMORAL OSTEOPHYTES WERE REMOVED FROM THE FEMORAL CONDYLES. A 71 TIBIAL TRIAL WAS PLACED IN ALIGNMENT WITH THE 1/3 MEDIAL ASPECT OF THE TIBIAL TUBERCLE. THEN A 60 FEMORAL TRIAL COMPONENT WAS PLACED. BOTH HAD EXCELLENT FITS. EVENTUALLY A 10 MM POLYETHYLENE TRIAL COMPONENT WAS PLACED. THE KNEE WAS TAKEN THROUGH A RANGE OF MOTION. THE KNEE CAME OUT TO FULL EXTENSION. THERE WAS NO ABNORMAL TILT TO THE PATELLA. THERE WAS GOOD A/P AND VARUS/VALGUS STABILITY. THERE WAS NO EXCESSIVE ROLL BACK WITH FLEXION. THE TRIAL COMPONENTS WERE REMOVED. THEN A 60 FEMORAL COMPONENT AND 71 TIBIAL COMPONENT WITH A 10 POLYETHYLENE COMPONENT WERE CEMENTED INTO PLACE. ONCE THE CEMENT WAS HARD THE KNEE WAS TAKEN THROUGH A ROM AGAIN AND FOUND TO BE STABLE WITH NO PATELLA TILT NO EXCESSIVE ROLL BACK WITH FLEXION AND GOOD STABILITY WITH COMPLETE AND FULL EXTENSION. THE KNEE WAS IRRIGATED WITH STERILE BETADINE AND WATER FOR ABOUT 3 MINUTES. THE BLEEDERS WERE CAUTERIZED. THE ARTHROTOMY WAS REPAIRED WITH NUMBER 1 VICRYL. THE SUB CUTANEOUS LAYER WITH 2-0 VICRYL AND THE SKIN WITH VINH. THE WOUND WAS WASHED AND A STERILE DRESSING WAS APPLIED. PATIENT WAS EXTUBATED. Estimated Blood Loss -150.0 Pathology None sent Complications No immediate complications Condition Stable Disposition PACU
[2024-11-11] MEDS: ONDANSETRON INJ 4 MG/2 ML VIAL IV PUSH (10:52)
[2024-11-11] MEDS: fentaNYL CITRATE INJ (*CRX) 100 MCG/2 ML VIAL 25 MCG IV PUSH ×2 (11:25→11:30)
--- NOTE | 2024-11-11 12:14 | SUR.PHASEI ---
1200- Patient meets PACU discharge criteria, unit bed unavailable at this time. Patient placed in extended recovery status.
--- NOTE | 2024-11-11 12:37 | WPDANESPNB ---
Anes - Peripheral Nerve Block Date/Time: 11/11/24 12:37 I have discussed with the patient/family/POA the placement of a peripheral nerve block for post-operative pain management, including associated risks, benefits, complications, and side effects. Alternative methods of post-operative analgesia were detailed. Questions were solicited and answers provided to the satisfaction of the patient/family/POA. Time-Out: A pre-procedural Time-Out was completed immediately before starting the procedure and confirmed: Patient Identification, Site, Procedure, Patient Position and the Availability of Requisite Equipment. Clinical Indications: Acute post-operative pain management requested by the operative surgeon. Nerve Block Insertion Note Anes-nerve block: adductor canal left Patient position: supine Skin prep: chlorhexidine Needle: 22 gauge, stimulating, insulated echogenic needle. Needle length: 80 mm Technique: ultrasound Technique comment: done in pacu Injectate: bupivacaine 0.5% with epi 5 mcg/ml (30ml no epi) Observations: tolerated well Complications: none Procedure start time:: 1052 Procedure end time:: 1057
[2024-11-11] MEDS: KETOROLAC 15 MG/ML VIAL (*BKC) IV PUSH ×3 (16:22→23:54)
[2024-11-11] MEDS: FAMOTIDINE 20 MG TABLET PO ×2 (16:25→20:15)
[2024-11-11] MEDS: polyethylene glycoL 3350 17 GM POWD.PACK PO (16:25)
[2024-11-11] MEDS: SENNA/DOCUSATE SODIUM TABLET 2 TAB PO (16:26)
[2024-11-11] MEDS: SODIUM CHLORIDE 0.9% IV 1,000 ML 125 ML IV CONT (16:26)
--- NOTE | 2024-11-11 17:57 | ADMGEN ---
This patient, Tessa Chow, was admitted to [facility] Surg Room 317-02. Patient/family oriented to hospital policies and general routines including ID bracelet, bed and alarms, visiting hours, pain management, procedures, bathroom and other care routines, personal items, smoking policy, room service/diet, and visiting hours. Information on how to activate the Rapid Response Team has been discussed. Patient/Family are encouraged to report perceived risks to care and to ask questions if they do not understand what they are told or what they should do.
[2024-11-11] MEDS: oxyCODONE/ACETAMINOPHEN (*CRX) 10-325 MG TABLET 1 TAB PO (21:10)
[2024-11-12] MEDS: HYDROmorphone HCL INJ (*CRX) 1 MG/ML SYR IV PUSH ×2 (01:35→08:25)
[2024-11-12] MEDS: ACETAMINOPHEN 500 MG TABLET PO ×3 (01:37→15:36)
[2024-11-12 03:49] VITALS: BP 129/78; PULSE 90; RESP 20; TEMP 36.6; O2SAT 90
[2024-11-12] MEDS: LEVOTHYROXINE SODIUM 75 MCG TABLET PO (05:12)
[2024-11-12] MEDS: KETOROLAC 15 MG/ML VIAL (*BKC) IV PUSH ×2 (05:13→12:17)
[2024-11-12 06:24] LABS: Basophils Percent Auto 0.1 % (0.2-1.2); Eosinophils Percent Auto 0.2 % (0-4.4); Hematocrit 29.3 % (37.0-47.0); Hemoglobin 9.3 g/dL (12.0-15.0); Immature Granulocyte Absolute 0.06 K/mm3 (0.00-0.031); Immature Granulocyte Percent A 0.6 % (0-0.5); Lymphocytes Absolute Auto 1.46 K/mm3 (0.9-3.2); Lymphocytes Percent Auto 14.9 % (18.3-44.2); Mean Corpuscular HGB Conc 31.7 g/dl (32-36); Mean Corpuscular Hemoglobin 32.2 pg (26-34); Mean Corpuscular Volume 101.4 fl (80-100); Monocytes Absolute Auto 0.9 K/mm3 (0.1-0.6); Monocytes Percent Auto 9.5 % (2.6-8.5); Neutrophils Absolute Auto 7.3 K/mm3 (1.3-6.7); Neutrophils Percent Auto 74.7 % (45.5-73.1); Platelet Count Result 151 k/mm3 (150-375); Red Blood Count 2.89 M/mm3 (4.2-5.4); Red Cell Distribution Width 12.8 % (11.5-14.5); White Blood Count 9.8 K/mm3 (4.5-10.0)
[2024-11-12 06:37] LABS: Anion Gap 5 mmol/L (4-12); Blood Urea Nitrogen 13 mg/dL (7-17); Calcium 8.6 mg/dL (8.4-10.2); Carbon Dioxide 28 mmol/L (22-30); Chloride 102 mmol/L (98-107); Estimated CRCL calculation 64 ml/min; Estimated Glomerular Filt Rate > 60; Glucose 118 mg/dL (65-110); Potassium 4.5 mmol/L (3.4-5.0); Sodium 135 mmol/L (137-145)
[2024-11-12] MEDS: SENNA/DOCUSATE SODIUM TABLET 2 TAB PO (08:36)
[2024-11-12] MEDS: polyethylene glycoL 3350 17 GM POWD.PACK PO (08:36)
[2024-11-12] MEDS: FAMOTIDINE 20 MG TABLET PO (08:36)
[2024-11-12] MEDS: ceFAZolin 2 GM/D5W 50 ML 2 GM/50 ML BAG IVPB (08:37)
[2024-11-12] MEDS: ASPIRIN 325 MG ENTERIC TABLET PO (08:37)
[2024-11-12 09:30] VITALS: BP 126/59; PULSE 95; RESP 20; TEMP 36.8; O2SAT 98
[2024-11-12] MEDS: oxyCODONE/ACETAMINOPHEN (*CRX) 10-325 MG TABLET 1 TAB PO (12:24)
--- NOTE | 2024-11-12 13:26 | PM.PNORT ---
Progress Note: A&P Assessment and Plan (1) Degenerative joint disease of knee: Qualifiers: Osteoarthritis type: primary Laterality: left Qualified Code(s): M17.12 - Unilateral primary osteoarthritis, left knee Code(s): M17.9 - Osteoarthritis of knee, unspecified Status: Acute Assessment and Plan: POD 1 DOING WELL WITH GOOD PROGRESS WITH PT. OK TO DC HOME. H AND H FOR THURSDAY PER HOME HEALTH Subjective Subjective Date/Time Seen: 11/12/24 13:26 Interval history: POD 1 DOING WELL. GOOD PROGRESS WITH PT. HGB STABLE Exam Extrem: Other: VSS AFEBRILE DRESSING DRY NV INTACT NEGATIVE HOMANS SIGN CALF SOFT THIGH SOFT, MILD HEMATOME Objective Data Vital Signs Vital Signs: Vital Signs - 24 hr 11/11/24 13:50 11/11/24 14:30 11/11/24 14:45 Temperature 36.8 C 36.8 C Pulse Rate 70 80 86 Respiratory Rate 16 19 18 Blood Pressure 130/70 112/59 L 134/69 Pulse Oximetry 96 98 Oxygen Delivery 11/11/24 14:45 11/11/24 15:05 11/11/24 15:30 Temperature Pulse Rate Respiratory Rate Blood Pressure Pulse Oximetry Oxygen Delivery Room Air Room Air Room Air 11/11/24 16:09 11/11/24 19:49 11/11/24 20:00 Temperature 37.1 C 37.3 C Pulse Rate 85 90 90 Respiratory Rate 17 16 16 Blood Pressure 131/75 132/83 Pulse Oximetry 100 99 99 Oxygen Delivery Room Air 11/11/24 23:35 11/12/24 03:49 11/12/24 09:30 Temperature 36.3 C L 36.6 C 36.8 C Pulse Rate 87 90 95 Respiratory Rate 16 20 20 Blood Pressure 134/67 129/78 126/59 L Pulse Oximetry 98 90 98 Oxygen Delivery 11/12/24 11:57 Temperature Pulse Rate Respiratory Rate Blood Pressure Pulse Oximetry Oxygen Delivery Room Air Intake/Output Intake/Output: Intake & Output 11/09/24 11/10/24 11/11/24 11/12/24 23:59 23:59 23:59 23:59 Intake Total 2230 1050 Balance 2230 1050 Meds/Results Medications: Active Medications Generic Name Dose Route Start Last Admin Trade Name Freq PRN Reason Stop Dose Admin Acetaminophen 500 mg 11/11/24 14:04 11/12/24 08:33 Acetaminophen 500 Mg Tablet PO 500 mg Q6H PRN Administration Pain Rated 1-3 Aspirin 325 mg 11/12/24 09:00 11/12/24 08:37 Aspirin 325 Mg Enteric Tablet PO 325 mg Q12HR KIMBERLY Administration Diazepam 5 mg 11/11/24 14:04 Diazepam (*Crx) 5 Mg Tablet PO Q8H PRN Spasms Diphenhydramine HCl 25 mg 11/11/24 14:04 Diphenhydramine Hcl Inj 50 Mg/Ml Vial IV PUSH Q6H PRN Itching Diphenhydramine HCl 25 mg 11/12/24 12:00 Diphenhydramine Hcl Cap 25 Mg Capsule PO HS PRN Pain (at night) Famotidine 20 mg 11/11/24 14:04 11/12/24 08:36 Famotidine 20 Mg Tablet PO 20 mg Q12HR KIMBERLY Administration Hydromorphone HCl 1 mg 11/11/24 14:04 11/12/24 08:25 Hydromorphone Hcl Inj (*Crx) 1 Mg/Ml Syr IV PUSH 1 mg Q2H PRN Administration Breakthrough Pain Rated 7-10 or NPO Hydromorphone HCl 0.5 mg 11/11/24 14:04 Hydromorphone Hcl Inj (*Crx) 1 Mg/Ml Syr IV PUSH Q2H PRN Breakthrough Pain Rated 4-6 or NPO Ibuprofen 800 mg in 200 mls @ 400 mls/hr 11/11/24 14:04 Caldolor 800 Mg/200 Ml IVPB Q6H PRN Breakthrough Pain Rated 1-3 or NPO Ibuprofen 200 mg 11/12/24 12:00 Ibuprofen 200 Mg Tablet PO HS PRN Pain (at night) Levothyroxine Sodium 75 mcg 11/12/24 06:30 11/12/24 05:12 Levothyroxine Sodium 75 Mcg Tablet PO 75 mcg DAILY@0630 KIMBERLY Administration Naloxone HCl 0.1 mg 11/11/24 14:04 Naloxone Hcl 0.4 Mg/Ml Vial IV PUSH Q2M PRN Opiate Reversal Ondansetron HCl 4 mg 11/11/24 14:04 Ondansetron Inj 4 Mg/2 Ml Vial IV PUSH Q4H PRN Nausea And Vomiting Oxycodone/Acetaminophen 1 tablet 11/11/24 14:04 Oxycodone/Acetaminophen (*Crx) 5-325 Mg Tablet PO Q4H PRN Pain Rated 4-6 Oxycodone/Acetaminophen 1 tab 11/11/24 14:04 11/12/24 12:24 Oxycodone/Acetaminophen (*Crx) 10-325 Mg Tablet PO 1 tab Q6H PRN Administration Pain Rated 7-10 Polyethylene Glycol 17 gm 11/11/24 14:04 11/12/24 08:36 Polyethylene Glycol 3350 17 Gm Powd.Pack PO 17 gm QAM KIMBERLY Administration Senna/Docusate Sodium 2 tab 11/11/24 17:00 11/12/24 08:36 Senna/Docusate Sodium Tablet PO 2 tab BID KIMBERLY Administration Radiology Results: ITS Impressions Knee X-Ray 11/11/24 10:51 IMPRESSION: 1. Total left knee arthroplasty in near-anatomic alignment. Labs Labs: Laboratory Results - last 24 hr 11/12/24 06:17 WBC 9.8 RBC 2.89 L Hgb 9.3 L D Hct 29.3 L MCV 101.4 H MCH 32.2 MCHC 31.7 L RDW 12.8 Plt Count 151 MPV 9.0 Immature Gran % (Auto) 0.6 H Neut % (Auto) 74.7 H Lymph % (Auto) 14.9 L Evans % (Auto) 9.5 H Eos % (Auto) 0.2 Baso % (Auto) 0.1 L Lymph # (Auto) 1.46 Evans # (Auto) 0.9 H Eos # (Auto) 0.0 Baso # (Auto) 0.0 Abs Immat Gran (auto) 0.06 H Absolute Neuts (auto) 7.3 H Absolute Nucleated RBC 0.000 Nucleated RBC % 0.0 Sodium 135 L Potassium 4.5 Chloride 102 Carbon Dioxide 28 Anion Gap 5 BUN 13 Creatinine 0.71 Estim Creat Clear Calc 64 Estimated GFR > 60 Glucose 118 H Calcium 8.6
[2024-11-12 13:43] VITALS: BP 108/48; PULSE 87; RESP 16; TEMP 37; O2SAT 98
[2024-11-12] MEDS: oxyCODONE/ACETAMINOPHEN (*CRX) 5-325 MG TABLET 1 TABLET PO (15:34)
== END 2024-11-12 16:30 | disposition home health service (06) ==
LOC: ANHSURGERY 05:45 → ANH3MEDSUR 15:24
PROVIDERS: PCP Internal Medicine Gastroenterology; Visit Provider Orthopaedic Surgery
PROC: (CPT 27447; principal; 2024-11-11 07:30)
DX: M17.12 Unilateral primary osteoarthritis, left knee (principal); M25.762 Osteophyte, left knee; G89.18 Other acute postprocedural pain; E78.5 Hyperlipidemia, unspecified; I10 Essential (primary) hypertension; M81.0 Age-related osteoporosis without current pathological fracture; F12.90 Cannabis use, unspecified, uncomplicated; E66.9 Obesity, unspecified; Z68.33 Body mass index [BMI] 33.0-33.9, adult; Z79.891 Long term (current) use of opiate analgesic; Z79.1 Long term (current) use of non-steroidal anti-inflammatories (NSAID); Z98.890 Other specified postprocedural states; Z98.1 Arthrodesis status; Z87.891 Personal history of nicotine dependence
CPT/HCPCS: 64447; 27447; 36415; 73560; 80048; 85025; 86850; 86900; 86901; 97110; 97116; 97161; 97165; 97530; 97535; A9270; C1713; C1776; J0171; J0690; J1100; J1171; J1885; J2250; J2270; J2405; J2704; J2795; J3010; J3370; J7030; J7120